=== PATIENT | female | born 1955 | race Caucasian/White ===

== ENCOUNTER → 2023-12-09 | Outpatient (CLI) | payer MEDICARE ==
--- NOTE | 2023-12-10 11:06 | XR ---
EXAMINATION TYPE: XR Hip Complete RT DATE OF EXAM: 12/09/2023 COMPARISON: None HISTORY: Pain TECHNIQUE: 2 view right hip FINDINGS: Moderate inflation of the acetabulum. No acute fracture or dislocation is evident. Joint sp deann is preserved. Follow up exams can be performed as clinically indicated. IMPRESSION: 1. Unremarkable 2 view right hip
== END | disposition home or self-care (01) ==
LOC: RADXRMAIN 10:34
PROVIDERS: ATTEND Family Medicine
DX: M25.551 Pain in right hip (principal)
CPT/HCPCS: 73502